=== PATIENT | male | born 1995 | race Caucasian/White ===

== ENCOUNTER 2022-12-17 23:27 | Emergency (ER) | payer SELFPAY ==
--- OUTSIDE RECORDS SUMMARY | 2022-12-17 23:31 | XMS REPORT | Continuity of Care Document ---
:[address] [facility] t Address [address] [place] [address] Care Team Providers Name Role Phone Pcp, Patient Does Not Have A Primary Care Physician [id number] Becka Pimentel MD Attending Clinician BECKA PIMENTEL Attending Clinician Unavailable Payers Payer Name Policy Type Policy Number Effective Date Expiration Date Startpack [id number] 1558-12-01 NON-CONTRACT 00:00:00 GENERIC Problems Condition Condition Condition Status Onset Resolution Last Treating Co mments Source Name Details Category Date Date Treatment Clinician Date No known No known Disease Unive rs active active ity of problems problems [facility] Allergies, Adverse Reactions, Alerts Allergy Allergy Status Severity Reaction(s) Onset Inactive Treating Comm ents Source Name Type Date Date Clinician Codeine Propensi Active Hives Univers ty to 02-15 ity of adverse 00:00: [place] reaction 00 Medical Branch Theraflu Propensi Active Hives Univer s Flu And ty to 02-15 ity of Cold adverse 00:00: [place] reaction 00 [facility] Branch CODEINE DRUG Active Hives Univers INGREDI 4-01 ity of 00:00: [address] THERAFLU DRUG Active Hives Univers FLU AND 02-15 ity of COLD 00:00: [address] Social History Social Habit Start Date Stop Date Quantity Comments Source Exposure to 2022-12-05 2022-12-15 Not sure [facility] SARS-CoV-2 (event) 00:00:00 04:22:00 Medica l Branch Sex Assigned At [birth year] [facility] [place] 00:00:00 00:00:00 Medical Branch Smoking Status Start Date Stop Date Source Tobacco smoking consumption General acute hospital unknown Branch Medications Ordered Filled Start Stop Current Ordering Indication Dosage Frequency Signature Comments Components Source Medication Medication Date Date Medication? Clinician (SIG) Name Name HYDROcodone 2022- No 1{tbl} 1 tablet, Univers -acetaminop 12-15 Oral, [facility]y of [place] (NORCO) 12:00[place] 11[place]05 [place] 00 :00 dose, On Medica l tablet 1 [place] Branch tablet 12/15/22 at 0600, Routine traMADOL Yes 50mg Take 1 Univers (ULTRAM) 50 7-24 tablet by ity of mg tablet 00:00: mouth [place] 00 every 6 Medical (six) Branch hours as needed for Pain (scale 4-6). Aneudy Christianson PA-C / Bright Rice MD SAIMA# [id number] DPS# [id number] Lic.# [id number] NPI# [id number] Vital Signs Vital Name Observation Time Observation Value Comments Source Systolic blood 2022-12-15 10:26:00 120 [facility] Diastolic blood 2022-12-15 10:26:00 77 [facility]Hg[facility] Heart rate 2022-12-15 10:26:00 87 /min [facility] Body temperature 2022-12-15 10:26:00 37.39 Kacey [facility] Respiratory rate 2022-12-15 10:26:00 18 /min [facility] Body height 2022-12-15 10:26:00 188 cm [facility] Body weight 2022-12-15 10:26:00 83.915 kg [facility] BMI 2022-12-15 10:26:00 23.75 kg/m2 [facility] Oxygen saturation in 2022-12-15 10:26:00 93 /min [facility] Arterial blood by [facility] Pulse oximetry Branch Procedures Procedure Date / Time Performed Performing Clinician Burke e BASIC METABOLIC PANEL 2022-12-15 11:12:00 Becka Pimentel [facility] (NA, K, CL, CO2, Medical Branch GLUCOSE, BUN, CREATININE, CA) CBC WITH DIFF 2022-12-15 11:12:00 Becka Pimentel [facility] URINALYSIS 2022-12-15 10:32:00 Becka Pimentel [facility] CONSENT/REFUSAL FOR 2022-12-15 10:06:49 Doctor Unassigned, No Un [facility] DIAGNOSIS AND Name [facility] Branch TREATMENT Encounters Start End Encounter Admission Attending Care Care Encounter Source Date/Time Date/Time Type Type Clinicians Facility Department ID 2022-12-15 2022-12-15 Emergency Scott [facility] [id number] Univers 04:21:00 06:13:00 Becka Carrillo [facility] [id number] hesham [facility] [id number] [facility] [id number] [facility] 084 Branch 2022-12-15 2022-12-15 Emergency X CHARLEY PIMENTEL ERT [id number] Univers 04:21:00 06:13:00 BECKA dahl [facility] Results This patient has no known results.
[2022-12-17] MEDS ORDERED: NA CHLORIDE 0.9% 1,000 ML ONE (23:47)
[2022-12-17] MEDS ORDERED: ONDANSETRON 4 MG/2 ML VIAL ONE (23:47)
[2022-12-17] MEDS ORDERED: MORPHINE 4 MG/ML SYR ONE (23:47)
[2022-12-18 00:17] LABS: MCV 87.2 fL (80-100); MPV 9.6 fL (7.6-11.3)
[2022-12-18] MEDS ORDERED: NA CHLORIDE 0.9% 1,000 ML ONE (00:45)
[2022-12-18 00:52] LABS: Blood Morphology Comment NOT SEEN (NOT SEEN); Platelet Estimate ADEQ
[2022-12-18 00:54] LABS: Urine Blood Negative (Negative); Urine Glucose 3+ (Negative); Urine Protein Negative (Negative); Urine pH 5.5 (5.0-7.0)
[2022-12-18 00:56] LABS: Albumin 3.4 g/dL (3.4-5.0); Bilirubin Total 0.3 mg/dL (0.2-1.0); Protein, Total 6.7 g/dL (6.4-8.2)
[2022-12-18 00:58] LABS: Potassium 4.8 mmol/L (3.5-5.1)
[2022-12-18 01:08] LABS: Urine Bacteria None Seen /HPF (<20); Urine Mucus Slight /HPF (None Seen); Urine RBC None Seen /HPF (None Seen)
[2022-12-18] MEDS ORDERED: INSULIN GLARGINE 100 UNIT/ML SQ ONE (01:23)
[2022-12-18] MEDS ORDERED: INSULIN -REGULAR HUMAN 50 UNIT/0.5 ML ML ONE (01:30)
--- NOTE | 2022-12-18 02:00 | EDPHYS ---
Physician Documentation [facility] Name: Angie Santillan Age: 27 yrs Sex: Male : 1995 Arrival Date: 12/17/2022 Time: 23:33 Bed 7 Private MD: ED Physician Won Marquez HPI: 12/18 01:03 This 27 yrs old Male presents to ER via Ambulatory with complaints of Back jose Pain. 01:03 The patient presents with pain that is acute, with no known mechanism of injury. The jose symptoms are located in the right mid back and right low back. Onset: The symptoms/episode began/occurred 6 day(s) ago. The pain does not radiate. Associated signs and symptoms: Pertinent positives: none. The problem was sustained when bending over. Modifying factors: The patient symptoms are alleviated by remaining still, the patient symptoms are aggravated by movement. Severity of symptoms: At their worst the symptoms were moderate, in the emergency department the symptoms are unchanged. The patient has not experienced similar symptoms in the past. Historical: - Allergies: 12/17 23:47 No Known Allergies; kd3 - Home Meds: 23:47 None [Active]; kd3 - PMHx: 23:47 None; kd3 - Immunization history:: Adult Immunizations up to date. - Social history:: Smoking status: Patient reports the use of cigarette tobacco products, 1 pack per week . - Family history:: not pertinent. ROS: 12/18 01:03 Constitutional: Negative for fever, chills, and weight loss, Eyes: Negative for injury, jose pain, redness, and discharge, ENT: Negative for injury, pain, and discharge, Neck: Negative for injury, pain, and swelling, Cardiovascular: Negative for chest pain, palpitations, and edema, Respiratory: Negative for shortness of breath, cough, wheezing, and pleuritic chest pain, Abdomen/GI: Negative for abdominal pain, nausea, vomiting, diarrhea, and constipation, : Negative for injury, bleeding, discharge, and swelling, MS/Extremity: Negative for injury and deformity, Skin: Negative for injury, rash, and discoloration, Neuro: Negative for headache, weakness, numbness, tingling, and seizure, Psych: Negative for depression, anxiety, suicide ideation, homicidal ideation, and hallucinations, Allergy/Immunology: Negative for hives, rash, and allergies, Endocrine: Negative for neck swelling, polydipsia, polyuria, polyphagia, and marked weight changes, Hematologic/Lymphatic: Negative for swollen nodes, abnormal bleeding, and unusual bruising. Back: Positive for injury or acute deformity, decreased range of motion, pain with movement, flank pain, on the right. Exam: 01:03 Constitutional: This is a well developed, well nourished patient who is awake, alert, jose and in no acute distress. Head/Face: Normocephalic, atraumatic. Eyes: Pupils equal round and reactive to light, extra-ocular motions intact. Lids and lashes normal. Conjunctiva and sclera are non-icteric and not injected. Cornea within normal limits. Periorbital areas with no swelling, redness, or edema. ENT: Nares patent. No nasal discharge, no septal abnormalities noted. Tympanic membranes are normal and external auditory canals are clear. Oropharynx with no redness, swelling, or masses, exudates, or evidence of obstruction, uvula midline. Mucous membranes moist. Neck: Trachea midline, no thyromegaly or masses palpated, and no cervical lymphadenopathy. Supple, full range of motion without nuchal rigidity, or vertebral point tenderness. No Meningismus. Chest/axilla: Normal chest wall appearance and motion. Nontender with no deformity. No lesions are appreciated. Cardiovascular: Regular rate and rhythm with a normal S1 and S2. No gallops, murmurs, or rubs. Normal PMI, no JVD. No pulse deficits. Respiratory: Lungs have equal breath sounds bilaterally, clear to auscultation and percussion. No rales, rhonchi or wheezes noted. No increased work of breathing, no retractions or nasal flaring. Abdomen/GI: Soft, non-tender, with normal bowel sounds. No distension or tympany. No guarding or rebound. No evidence of tenderness throughout. Male : Normal genitalia with no discharge or lesions. Skin: Warm, dry with normal turgor. Normal color with no rashes, no lesions, and no evidence of cellulitis. MS/ Extremity: Pulses equal, no cyanosis. Neurovascular intact. Full, normal range of motion. Neuro: Awake and alert, GCS 15, oriented to person, place, time, and situation. Cranial nerves II-XII grossly intact. Motor strength 5/5 in all extremities. Sensory grossly intact. Cerebellar exam normal. Normal gait. Psych: Awake, alert, with orientation to person, place and time. Behavior, mood, and affect are within normal limits. 01:03 Back: pain, that is mild, that is moderate, ROM is painful, with all movement, normal spinal alignment noted, CVA tenderness, that is moderate, is noted on the right, muscle spasm, is not present. Vital Signs: 12/17 23:43 BP 118 / 96; Pulse 80; Resp 16; Temp 97.9(O); Pulse Ox 100% ; Weight 81.65 kg; Height 6 kd3 ft. (182.88 cm); 12/18 01:02 BP 99 / 65; Pulse 73; Resp 19 S; Pulse Ox 94% on R/A; aa9 12/17 23:43 Body Mass Index 24.41 (81.65 kg, 182.88 cm) kd3 MDM: 12/17 23:34 Patient medically screened. [facility] 12/18 01:07 Differential diagnosis: Fatigue Fracture Osteoarthritis ruptured disc, Scoliosis jose sprain, Ureterolithiasis vertebral fracture. Data reviewed: vital signs, nurses notes, lab test result(s), radiologic studies, CT scan. Consideration of Admission/Observation Patient was admitted/placed on observation. Escalation of care including admission/observation considered. I considered the following discharge prescriptions or medication management in the emergency department Medications were administered in the Emergency Department. See MAR. Test considered but Not performed: MRI: mri lumbar not ordered. 12/17 23:34 Order name: CBC with Diff; Complete Time: 01:00 [facility] 12/17 23:34 Order name: CMP; Complete Time: 01:00 [facility] 12/17 23:34 Order name: Lipase; Complete Time: 01:00 [facility] 12/17 23:34 Order name: Urine Microscopic Only; Complete Time: 01:30 [facility] 12/18 00:28 Order name: Manual Differential; Complete Time: 01:00 [facility] 12/18 00:54 Order name: Urine Dipstick-Ancillary; Complete Time: 01:00 [facility] 12/17 23:43 Order name: CT Abd/Pelvis - IV Contrast Only [facility] 12/18 02:26 Order name: Glucose, Ancillary Testing EDME 12/17 23:34 Order name: IV Saline Lock; Complete Time: 00:07 [facility] 12/17 23:34 Order name: Labs collected and sent; Complete Time: 00:07 jose 12/17 23:34 Order name: Urine Dipstick-Ancillary (obtain specimen); Complete Time: 00:53 jose Administered Medications: 00:07 Drug: NS 0.9% 1000 ml Route: IV; Rate: 1 bolus; Site: right antecubital; as6 02:40 Follow up: Response: No adverse reaction; IV Status: Completed infusion; IV Intake: aa9 1000ml 00:07 Drug: Zofran (Ondansetron) 4 mg Route: IVP; Site: right antecubital; as6 02:40 Follow up: Response: No adverse reaction aa9 00:08 Drug: morphine 4 mg Route: IVP; Infused Over: 4 mins; Site: right antecubital; as6 02:40 Follow up: Response: No adverse reaction aa9 00:43 Drug: NS 0.9% 1000 ml Route: IV; Rate: 1 bolus; Site: right antecubital; aa9 02:40 Follow up: IV Status: Completed infusion; IV Intake: 1000ml aa9 01:43 Drug: Insulin Regular Human 10 units {Co-Signature: as6 (Steven Gonzalez RN).} Route: aa9 IVP; Site: right antecubital; 02:14 Follow up: Response: No adverse reaction; BS 347 aa9 01:44 Drug: Semglee 100 unit/mL 35 units Route: Sub-Q; Site: left upper arm; aa9 02:15 Follow up: Response: No adverse reaction; Blood sugar is lowered aa9 Disposition Summary: 12/18/22 01:59 Discharge Ordered Location: Home [facility] Problem: new jose Symptoms: have improved jose Condition: Stable jose Diagnosis - Type 2 diabetes mellitus with hyperglycemia jose - Low back pain jose Followup: jose - With: Private Physician - When: 2 - 3 days - Reason: Recheck today's complaints, Continuance of care, Re-evaluation by your physician Followup: jose - With: - When: 2 - 3 days - Reason: Recheck today's complaints, Re-evaluation by your physician Discharge Instructions: - Discharge Summary Sheet jose - Acute Back Pain, Adult jose - Type 2 Diabetes Mellitus, Diagnosis, Adult jose - Hyperglycemia jose - Musculoskeletal Pain jose - Diabetes Mellitus and Nutrition, Adult jose Forms: - Medication Reconciliation Form jose - Thank You Letter jose - Antibiotic Education jose - Prescription Opioid Use [facility] Prescriptions: - Ibuprofen 600 mg Oral Tablet - take 1 tablet by ORAL route every 8 hours As needed take with food; 21 tablet; [facility] Refills: 0, Product Selection Permitted - Metformin 850 mg Oral Tablet - take 1 tablet by ORAL route 2 times per day with morning and evening meals; 30 jose tablet; Refills: 0, Product Selection Permitted Signatures: Dispatcher [employer] Won Spence MD MD cha Slawson, Ashby, RN RN as6 Gely Cook RN RN kd3 Jenniffer Hernandez RN RN aa9 Steven Gonzalez RN as6
--- NOTE | 2022-12-18 02:00 | ER ---
[facility] Name: Angie Santillan Age: 27 yrs Sex: Male : 1995 Arrival Date: 12/17/2022 Time: 23:33 Bed 7 Private MD: Diagnosis: Type 2 diabetes mellitus with hyperglycemia;Low back pain Presentation: 12/17 23:43 Chief complaint: Patient states: I was out working on my truck on Friday and i was sore kd3 a bit then. Friday i woke up and my right lower back really started to hurt a lot. I went to the [facility] and they didn't do any scans or anything on my, just gave me one pain pill and sent me home. Well the pain hasn't gone away and i just cant stand it anymore. Coronavirus screen: Vaccine status: Patient reports being unvaccinated. Ebola Screen: No symptoms or risks identified at this time. Initial Sepsis Screen: Does the patient meet any 2 criteria? No. Patient's initial sepsis screen is negative. Does the patient have a suspected source of infection? No. Patient's initial sepsis screen is negative. Risk Assessment: Do you want to hurt yourself or someone else? Patient reports no desire to harm self or others. Onset of symptoms was December 17, 2022. 23:43 Method Of Arrival: Ambulatory kd3 23:43 Acuity: MICA 3 kd3 Triage Assessment: 23:47 General: Appears in no apparent distress. Behavior is calm, cooperative. Pain: kd3 Complains of pain in left low back and left mid back. Neuro: Level of Consciousness is awake, alert, obeys commands, Oriented to person, place, time, situation, Intact. 23:48 Musculoskeletal: Circulation, motion, and sensation intact. kd3 Historical: - Allergies: 23:47 No Known Allergies; kd3 - Home Meds: 23:47 None [Active]; kd3 - PMHx: 23:47 None; kd3 - Immunization history:: Adult Immunizations up to date. - Social history:: Smoking status: Patient reports the use of cigarette tobacco products, 1 pack per week . - Family history:: not pertinent. Screenin:49 [facility] ED Fall Risk Assessment (Adult) History of falling in the last 3 months, kd3 including since admission No falls in past 3 months (0 pts). Abuse screen: Denies threats or abuse. Denies injuries from another. Nutritional screening: No deficits noted. Tuberculosis screening: No symptoms or risk factors identified. Assessment: 12/18 02:39 Reassessment: Patient appears in no apparent distress at this time. Patient and/or aa9 family updated on plan of care and expected duration. Pain level reassessed. Patient is alert, oriented x 3, equal unlabored respirations, skin warm/dry/pink. Patient denies pain at this time. Vital Signs: 12/17 23:43 BP 118 / 96; Pulse 80; Resp 16; Temp 97.9(O); Pulse Ox 100% ; Weight 81.65 kg; Height 6 kd3 ft. (182.88 cm); 12/18 01:02 BP 99 / 65; Pulse 73; Resp 19 S; Pulse Ox 94% on R/A; aa9 12/17 23:43 Body Mass Index 24.41 (81.65 kg, 182.88 cm) kd3 ED Course: 12/17 23:33 Patient arrived in ED. ag3 23:33 Won Marquez MD is Attending Physician. jose 23:41 Steven Gonzalez, ИВАН is Primary Nurse. as6 23:47 Triage completed. kd3 23:48 Arm band placed on right wrist. kd3 23:49 Patient has correct armband on for positive identification. kd3 12/18 00:07 Inserted saline lock: 20 gauge in right antecubital area, using aseptic technique. as6 Blood collected. 01:43 CT Abd/Pelvis - IV Contrast Only In Process Unspecified. EDMS 01:59 Jarad Vitcoria DO is Referral Physician. jose 02:15 No provider procedures requiring assistance completed. aa9 02:39 IV discontinued, intact, bleeding controlled, No redness/swelling at site. aa9 Administered Medications: 00:07 Drug: NS 0.9% 1000 ml Route: IV; Rate: 1 bolus; Site: right antecubital; as6 02:40 Follow up: Response: No adverse reaction; IV Status: Completed infusion; IV Intake: aa9 1000ml 00:07 Drug: Zofran (Ondansetron) 4 mg Route: IVP; Site: right antecubital; as6 02:40 Follow up: Response: No adverse reaction aa9 00:08 Drug: morphine 4 mg Route: IVP; Infused Over: 4 mins; Site: right antecubital; as6 02:40 Follow up: Response: No adverse reaction aa9 00:43 Drug: NS 0.9% 1000 ml Route: IV; Rate: 1 bolus; Site: right antecubital; aa9 02:40 Follow up: IV Status: Completed infusion; IV Intake: 1000ml aa9 01:43 Drug: Insulin Regular Human 10 units {Co-Signature: as6 (Steven Gonzalez RN).} Route: aa9 IVP; Site: right antecubital; 02:14 Follow up: Response: No adverse reaction; BS 347 aa9 01:44 Drug: Semglee 100 unit/mL 35 units Route: Sub-Q; Site: left upper arm; aa9 02:15 Follow up: Response: No adverse reaction; Blood sugar is lowered aa9 Medication: 12/17 23:49 VIS not applicable for this client. kd3 Intake: 02 02:40 IV: 1000ml; Total: 1000ml. aa9 02:40 IV: 1000ml; Total: 2000ml. aa9 Outcome: 01:59 Discharge ordered by . jose 02:39 Discharged to home ambulatory. aa9 02:39 Condition: stable 02:39 Discharge instructions given to patient, Instructed on discharge instructions, follow up and referral plans. medication usage, Demonstrated understanding of instructions, follow-up care, medications, Prescriptions given X 2. 02:39 Patient left the ED. aa9 Signatures: Dispatcher [employer] EDWon Gonzales MD MD cha Gomez, Alice ag3 Slawson, Ashby, RN RN as6 Gely Cook RN RN kd3 Jenniffer Hernandez RN RN aa9 Steven Gonzalez RN as6
[2022-12-18 02:49] VITALS: TEMP 97.9
[2022-12-18 02:55] VITALS: BP 99/65; O2SAT 94
--- NOTE | 2022-12-18 12:48 | RAD REPORT ---
EXAM DESCRIPTION: CT - Abdomen Pelvis W Contrast - 12/18/2022 6:38 am CLINICAL HISTORY: 27 years, Male, flank pain COMPARISON: None TECHNIQUE: Contrast-enhanced images of the abdomen and pelvis were performed utilizing 5 mm slice th ickness at 5 mm interval reconstruction from the lung bases to the ischial tuberosities after the adm inistration of IV contrast. In addition multiplanar reformats in the coronal and sagittal plane were obtained and reviewed. This exam was performed according to our departmental dose-optimization protocol, which includes auto mated exposure control, adjustment of the mA and/or kV according to patient size and/or use of iterat edu reconstruction technique. FINDINGS: The lung bases demonstrate to be clear. The liver, gallbladder, pancreas, spleen and adrenal glands demonstrate to be unremarkable, no focal lesions are noted. The kidneys demonstrate normal uptake of contrast media. No evidence for nephrolithiasis and/or hydro nephrosis. Grossly the unopacified stomach, small bowel and large bowel demonstrate to be within normal limits. There is no evidence for bowel dilatation/or free air. The appendix is normal. The urinary bladder demonstrate to be unremarkable. The prostate gland is normal. The aorta demon strate to be normal. There is no retroperitoneal lymphadenopathy. There is no ascites. The rest of the soft tissue and bony structures are within normal limits. IMPRESSION: No evidence for nephrolithiasis and/or hydronephrosis. Unremarkable CT scan of the abdomen and pelvis with contrast. Electronically signed by: Deon Tamez MD 12/18/2022 1:55 AM [employer] OPERATOR Due to temporary technical issues with the PACS/Fluency reporting system, reports are being signed by the in house radiologists without review as a courtesy to insure prompt reporting. The interpreting radiologist is fully responsible for the content of the report.
== END 2022-12-18 02:39 | disposition home or self-care (01) ==
LOC: ER 23:27
DX: M54.50 Low back pain, unspecified (principal); E11.65 Type 2 diabetes mellitus with hyperglycemia; F17.210 Nicotine dependence, cigarettes, uncomplicated
CPT/HCPCS: 36415; 74177; 80053; 81003; 81015; 82947; 83690; 85025; J1815; J2405; J7030; Q9967

== ENCOUNTER → 2023-11-08 | Emergency (ER) | payer SELFPAY ==
--- OUTSIDE RECORDS SUMMARY | 2023-11-08 12:04 | XMS REPORT | Continuity of Care Document ---
Author Name Unknown Address [address] [facility] [address] [place] [address] [facility] Address [address] [facility] [address] [place] [address] Care Team Providers Care Wheel Braider Name Role Phone Pcp, Patient Does Not Have A Primary Care Physic wanda Becka Pimentel MD Attending Clinician BECKA PIMENTEL Attending Clinician Unavailable Payers Payer Name Policy Type Policy Number Effective Date Expirati on Date Source COMMERCIAL NON-CONTRACT GENERIC [id number] 1708-12-01 00:00:00 Problems Condition Name Condition Details Condition Category Status Onset Date Resolution Date Last Treatment Date Treating Clinician Comments Source No known active problems No known active problems Disease [facility] Allergies, Adverse Reactions, Alerts Allergy Name Allergy Type Status Severity Reaction(s) Onset Date Inactive Date Treating Clinician Comments Source Codeine Propensi ty to adverse reaction s Active Hives 02-15 00:00: 00 [facility] Theraflu Flu And Cold Propensi ty to adverse reaction s Active Hives 02-15 00:00: 00 [facility] CODEINE DRUG INGREDI Active Hives 02-15 00:00: 00 [facility] THERAFLU FLU AND COLD DRUG Active Hives 02-15 00:00: 00 [facility] Social History Social Habit Start Date Stop Date Quantity Comments Source Exposure to SARS-CoV-2 (event) 2022-12-05 00:00:00 2022-12-15 04:22:00 Not sure [facility] Sex Assigned At 1995 00:00:00 1995 00:00:00 [facility] Smoking Status Start Date Stop Date Source Tobacco smoking consumption unknown [facility] Medications Ordered Medication Name Filled Medication Name Start Date Stop Date Current Medication? Ordering Clinician Indication Dosage Frequency Signature (SIG) Comments Components Source HYDROcodone -acetaminop hen (NORCO) 10-325 mg tablet 1 tablet 12-15 12:00: 00 12-15 11:05 :00 No 1{tbl} 1 tablet, Oral, ONCE, 1 dose, On 12/15/22 at 0600, Routine [facility] traMADOL (ULTRAM) 50 mg tablet 06-09 00:00: 00 Yes 50mg Take 1 tablet by mouth every 6 (six) hours as needed for Pain (scale 4-6). Aneudy Christianson PA-C / Bright Rice MD SAIMA# [id number] DPS# [id number] x Lic.# [id number] NPI# [id number] [facility] Vital Signs Vital Name Observation Time Observation Value Comments S ource Systolic blood pressure 2022-12-15 10:26:00 120 mm[Hg] [facility] Diastolic blood pressure 2022-12-15 10:26:00 77 mm[Hg] [facility] Heart rate 2022-12-15 10:26:00 87 /min [facility] Body temperature 2022-12-15 10:26:00 37.39 Kacey [facility] Respiratory rate 2022-12-15 10:26:00 18 /min [facility] Body height 2022-12-15 10:26:[address] [facility] Body weight 2022-12-15 10:26:[address] [facility] BMI 2022-12-15 10:26:00 23.75 kg/m2 [facility] Oxygen saturation in Arterial blood by Pulse oximetry 2022-12-15 10:26:00 93 /min [facility] Procedures Procedure Date / Time Performed Performing Clinicia n Source BASIC METABOLIC PANEL (NA, K, CL, CO2, GLUCOSE, BUN, CREATININE, CA) 2022-12-15 11:12:00 Becka Pimentel [facility] CBC WITH DIFF 2022-12-15 11:12:00 Becka Pimentel [facility] URINALYSIS 2022-12-15 10:32:[address] [facility] CONSENT/REFUSAL FOR DIAGNOSIS AND TREATMENT 2022-12-15 10:06:49 Doctor Unassigned, [place] [facility] Encounters Start Date/Time End Date/Time Encounter Type Admission Type Attending Clinicians Care Facility Care Department Encounter ID Source 2022-12-15 04:21:00 2022-12-15 06:13:00 Emergency Becka Pimentel [facility] [id number] [facility] 2022-12-15 04:21:00 2022-12-15 06:13:00 Emergency X BECKA PIMENTEL [facility] ERT [id number] [facility]
--- NOTE | 2023-11-08 14:34 | RAD REPORT ---
EXAM DESCRIPTION: Andrew Single View11/08/2023 2:00 pm CLINICAL HISTORY: sob COMPARISON: none FINDINGS: The lungs appear clear of acute infiltrate. The heart is normal size IMPRESSION: No acute abnormalities displayed
--- NOTE | 2023-11-08 18:33 | ER ---
Nurse's Notes [facility] Name: Angie Santillan Age: 28 yrs Sex: Male : 1995 Arrival Date: 11/08/2023 Time: 12:02 Bed IW9 Private MD: Diagnosis: Diabetes mellitus due to underlying condition with hyperglycemia;Tachycardia, unspecified Presentation: 11/08 13:23 Chief complaint: Patient states: DIZZINESS AND LOSS OF BALANCE EVERY TIME HE STANDS UP jj7 IN THE LAST 2-3 DAYS. HEADACHE, SOB ONLY WHEN HE WALKS. Coronavirus screen: At this time, the client does not indicate any symptoms associated with coronavirus-19. Ebola Screen: No symptoms or risks identified at this time. Initial Sepsis Screen: Does the patient meet any 2 criteria? HR > 90 bpm. Yes Does the patient have a suspected source of infection? No. Patient's initial sepsis screen is negative. Risk Assessment: Do you want to hurt yourself or someone else? Patient reports no desire to harm self or others. 13:23 Method Of Arrival: [facility] 13:23 Acuity: MICA 3 jj7 Triage Assessment: 13:28 General: Appears in no apparent distress. comfortable, Behavior is calm, cooperative, jj7 appropriate for age. Pain: Denies pain. Neuro: Reports dizziness, headache. Historical: - Allergies: 13:28 Codeine; jj7 13:28 THERMAFLU; jj7 - PMHx: 13:28 Diabetes mellitus; jj7 - PSHx: 13:28 LEFY EYE; HEAD; jj7 - Immunization history:: Adult Immunizations not up to date. - Social history:: Smoking status: Patient/guardian denies using tobacco, Stopped _ months ago 4 Patient uses alcohol, occasionally. Patient/guardian denies using street drugs. Vital Signs: 13:23 BP 110 / 95; Pulse 128; Resp 17; Temp 98; Pulse Ox 100% ; Weight 81.65 kg; Height 6 ft. jj7 2 in. ; Pain 0/10; 13:23 Body Mass Index 23.11 (81.65 kg, 187.96 cm) j 13:23 Pain Scale: Adult j ED Course: 12:18 Patient arrived in ED. im 13:10 Won Enrique PA is PHCP. cp 13:10 Won Marquez MD is Attending Physician. cp 13:28 Triage completed. jj7 13:28 Arm band placed on right wrist. jj7 14:02 XRAY Chest (1 view) In Process Unspecified. EDMS Administered Medications: No medications were administered Point of Care Testing: Blood Glucose: 15:06 Blood Glucose: 500 mg/dL; jj7 Ranges: Outcome: 18:36 Patient left the ED. ap3 Signatures: Dispatcher [employer] EDMS Won Enrique PA PA cp Prokisch, Amanda, RN RN ap3 Ricki Donnelly RN RN jj7 Dania Collins
--- NOTE | 2023-11-08 18:33 | EDPHYS ---
Physician Documentation [facility] Name: Angie Santillan Age: 28 yrs Sex: Male : 1995 Arrival Date: 11/08/2023 Time: 12:02 Bed IW9 Private MD: ED Physician Won Marquez HPI: 11/08 13:33 This 28 yrs old Male presents to ER via Ambulatory with complaints of Dizziness. cp 13:33 The patient presents with dizziness, lightheadedness. cp 13:33 Onset: The symptoms/episode began/occurred 3 day(s) ago. cp 13:33 Associated signs and symptoms: Pertinent positives: headache, shortness of breath with cp exertion, Pertinent negatives: abdominal pain, chest pain, diaphoresis, focal weakness. Patient's baseline: Neuro: alert and fully oriented, Motor: no deficits, Ambulation: walks without assistance, Speech: normal. 13:33 Patient reports medical history significant for diabetes. Stop taking insulin due to cp side effects. Historical: - Allergies: 13:28 Codeine; jj7 13:28 THERMAFLU; jj7 - PMHx: 13:28 Diabetes mellitus; jj7 - PSHx: 13:28 LEFY EYE; HEAD; jj7 - Immunization history:: Adult Immunizations not up to date. - Social history:: Smoking status: Patient/guardian denies using tobacco, Stopped _ months ago 4 Patient uses alcohol, occasionally. Patient/guardian denies using street drugs. ROS: 13:35 Constitutional: Negative for body aches, chills, fever, poor PO intake, cp 13:35 Cardiovascular: Negative for edema, palpitations, cp 13:35 Eyes: Negative for injury, pain, redness, and discharge, cp 13:35 ENT: Negative for drainage from ear(s), ear pain, sore throat, difficulty swallowing, difficulty handling secretions, 13:35 Respiratory: Positive for shortness of breath, Negative for cough, wheezing, 13:35 Abdomen/GI: Negative for abdominal pain, vomiting, diarrhea, constipation, 13:35 : Negative for urinary symptoms, testicular pain 13:35 Neuro: Positive for dizziness, headache, Negative for altered mental status, syncope, weakness, 13:35 All other systems are negative, Exam: 13:40 Constitutional: The patient appears in no acute distress, alert, awake, cp non-diaphoretic, non-toxic, well developed, well nourished, 13:40 Head/Face: Normocephalic, atraumatic. cp 13:40 Eyes: Periorbital structures: appear normal, Conjunctiva: normal, no exudate, no injection, Sclera: no appreciated abnormality, Lids and lashes: appear normal, bilaterally, 13:40 ENT: External ear(s): are unremarkable, Nose: is normal, Mouth: Lips: moist, Oral mucosa: pink and intact, moist, Posterior pharynx: Airway: no evidence of obstruction, patent, 13:40 Chest/axilla: Inspection: normal, 13:40 Cardiovascular: Rate: tachycardic, Rhythm: regular, 13:40 Respiratory: the patient does not display signs of respiratory distress, Respirations: normal, no use of accessory muscles, no retractions, labored breathing, is not present, Breath sounds: are clear throughout, no decreased breath sounds, no stridor, no wheezing, 13:40 Abdomen/GI: Inspection: abdomen appears normal, Palpation: abdomen is soft and non-tender, in all quadrants, 13:40 Neuro: Orientation: to person, place \T\ time. Mentation: able to follow commands, slow to respond, Motor: moves all fours, strength is normal, Vital Signs: 13:23 BP 110 / 95; Pulse 128; Resp 17; Temp 98; Pulse Ox 100% ; Weight 81.65 kg; Height 6 ft. jj7 2 in. ; Pain 0/10; 13:23 Body Mass Index 23.11 (81.65 kg, 187.96 cm) jj7 13:23 Pain Scale: Adult jj7 MDM: 13:32 Patient medically screened. [facility] 16:50 Data reviewed: vital signs, nurses notes, radiologic studies, plain films. 11/08 15:17 Order name: Glucose, Ancillary Testing; Complete Time: 16:47 EDMS 11/08 13:29 Order name: XRAY Chest (1 view); Complete Time: 16:47 11/08 16:47 Interpretation: Report review. 11/08 13:29 Order name: EKG; Complete Time: 13:29 11/08 13:29 Order name: Cardiac monitoring 11/08 13:29 Order name: EKG - Nurse/Tech 11/08 13:29 Order name: IV Saline Lock 11/08 13:29 Order name: Labs collected and sent 11/08 13:29 Order name: O2 Per Protocol 11/08 13:29 Order name: O2 Sat Monitoring 11/08 15:00 Order name: Accucheck Blood Glucose; Complete Time: 15:06 cp Administered Medications: No medications were administered Point of Care Testing: Blood Glucose: 15:06 Blood Glucose: 500 mg/dL; jj7 Ranges: Critical Glucose Levels:Adult <50 mg/dl or >400 mg/dl <40 mg/dl or >180 mg/dl Disposition Summary: 11/08/23 18:33 Eloped Notes: Disposition: after being seen by provider cp Problem: new cp Symptoms: are unchanged cp Reason: unknown cp Condition: Serious cp Diagnosis - Diabetes mellitus due to underlying condition with hyperglycemia cp - Tachycardia, unspecified cp Followup: cp - With: Emergency Department - When: As needed - Reason: Worsening of condition Signatures: Dispatcher [employer] EDMS Won Marquez MD MD cha Page, Corey, PA PA cp Ricki Donnelly RN RN jj7 Corrections: (The following items were deleted from the chart) 17:46 13:29 Urinalysis W/Microscopic+U.LAB.BRZ ordered. EDMS EDMS 17:47 13:29 BASIC METABOLIC PANEL+C.LAB.BRZ ordered. EDMS EDMS 17:47 13:29 CBC+H.LAB.BRZ ordered. EDMS EDMS 17:47 13:29 HEPATIC FUNCTION+C.LAB.BRZ ordered. EDMS EDMS 17:47 13:29 MAGNESIUM+C.LAB.BRZ ordered. EDMS EDMS 17:47 13:29 PROBNP+C.LAB.BRZ ordered. EDMS EDMS 17:47 13:29 Troponin High Sensitivity+C.LAB.BRZ ordered. EDMS EDMS 18:36 13:32 BETA HYDROXYBUTYRATE+C.LAB.BRZ ordered. cp ap3
[2023-11-08 20:34] VITALS: BP 110/95; TEMP 98; O2SAT 100
== END ==
LOC: ER 12:02
DX: E11.65 Type 2 diabetes mellitus with hyperglycemia (principal); R00.0 Tachycardia, unspecified
CPT/HCPCS: 71045; 82947; 99281

== ENCOUNTER 2025-03-20 19:29 | Emergency (ER) | payer OTHER, SELFPAY ==
[2025-03-20] MEDS ORDERED: IBUPROFEN 400 MG TAB ONE (20:03)
[2025-03-20] MEDS ORDERED: HYDROCODONE/APAP 7.5/325 MG TAB ONE (20:04)
--- NOTE | 2025-03-20 20:38 | EDPHYS ---
Physician Documentation [facility] Name: Angie Santillan Age: 29 yrs Sex: Male : 1995 Arrival Date: 03/20/2025 Time: 19:29 Bed 11 Private MD: ED Physician Adair Rivero HPI: 03/20 20:00 This 29 yrs old Male presents to ER via Ambulatory with complaints of Toothache. cp 20:00 The patient presents with pain. The problem is located in the right upper jaw. cp 20:00 Associated signs and symptoms: Pertinent positives: pain, Pertinent negatives: fever, cp inability to eat. 20:00 Patient reports having 2 teeth removed yesterday by local dentist. Increased pain cp today. Ran out of Tramadol. Currently taking prescribed Amoxicillin. Historical: - Allergies: 19:50 Codeine; cm10 19:50 THERMAFLU; cm10 - PMHx: 19:50 diabetes mellitus; cm10 - PSHx: 19:50 head; LEFY EYE; cm10 - Immunization history:: Adult Immunizations up to date. - Infectious Disease History:: Denies. - Social history:: Smoking status: Patient reports the use of cigarette tobacco products, denies chronic smoking, but will smoke occasionally. ROS: 20:05 ENT: Positive for dental pain, cp 20:05 Constitutional: Negative for body aches, chills, fever, poor PO intake, cp 20:05 Respiratory: Negative for cough, shortness of breath, wheezing, 20:05 Abdomen/GI: Negative for abdominal pain, nausea, vomiting, and diarrhea, 20:05 Eyes: Negative for injury, pain, redness, and discharge, cp 20:05 Skin: Negative for cellulitis, rash, cp 20:05 Neuro: Negative for altered mental status, headache, weakness, 20:05 All other systems are negative, Exam: 20:10 Constitutional: The patient appears in no acute distress, alert, awake, non-toxic, well cp developed, well nourished, uncomfortable, 20:10 Head/Face: Normocephalic, atraumatic. cp 20:10 Eyes: Periorbital structures: appear normal, Conjunctiva: normal, no exudate, no injection, Sclera: no appreciated abnormality, Lids and lashes: appear normal, bilaterally, 20:10 ENT: External ear(s): are unremarkable, Ear canal(s): are normal, clear, TM's: dullness, bilaterally, Nose: is normal, Mouth: Lips: moist, Oral mucosa: pink and intact, moist, Gums: pink, Tongue: is normal, abscess, is not appreciated, Posterior pharynx: Airway: no evidence of obstruction, patent, Dental exam: dental caries, that is severe, diffusely, missing teeth, specifically the upper right first molar (#3) and upper right second bicuspid (#4), pain, specifically in the upper right first molar (#3) and upper right second bicuspid (#4), Voice: is normal, 20:10 Neck: ROM/movement: Meningeal signs: are not present, nuchal rigidity, is not appreciated, 20:10 Chest/axilla: Inspection: normal, 20:10 Cardiovascular: Rate: normal, Rhythm: regular, 20:10 Respiratory: the patient does not display signs of respiratory distress, Respirations: normal, no use of accessory muscles, no retractions, labored breathing, is not present, Breath sounds: are clear throughout, no decreased breath sounds, no stridor, no wheezing, 20:10 Abdomen/GI: Inspection: abdomen appears normal, Palpation: abdomen is soft and non-tender, in all quadrants, Vital Signs: 19:49 BP 106 / 71; Pulse 66; Resp 14; Temp 98.2; Pulse Ox 99% on R/A; Weight 81.65 kg; Height cm10 6 ft. 2 in. ; Pain 7/10; 20:53 BP 110 / 70; Pulse 64; Resp 18 S; Temp 99(O); Pulse Ox 99% ; br2 19:49 Body Mass Index 23.11 (81.65 kg, 187.96 cm) cm10 19:49 Pain Scale: Adult cm10 MDM: 19:52 Medical Screening Exam initiated cp 20:10 Differential diagnosis: dental caries, gingivitis, dental abscess, pericoronitis. cp 20:37 Data reviewed: vital signs, nurses notes, and as a result, I will discharge patient. cp 20:37 I considered the following discharge prescriptions or medication management in the emergency department Medications were administered in the Emergency Department. See MAR. 20:38 Counseling: I had a detailed discussion with the patient and/or guardian regarding the cp historical points, exam findings, and any diagnostic results supporting the discharge/admit diagnosis, the need for outpatient follow up, a dentist, to return to the emergency department if symptoms worsen or persist or if there are any questions or concerns that arise at home. 20:38 Response to treatment: the patient's symptoms have mildly improved after treatment, and cp as a result, I will discharge patient. Administered Medications: 20:09 Drug: Ibuprofen PO 800 mg PO once Route: PO; br2 20:52 Follow up: Response: No adverse reaction br2 20:09 Drug: Hydrocodone-Acetaminophen PO (7.5 mg-325 mg) 1 tabs PO once; RASS on ADMIN: br2 Combtv4, Very Agttd3, Agttd2, Rstlss1, AlertClm0, Drwsy-1, Lt Sdtn-2, Mod Sdtn-3, Dp Sdtn-4, UnArsble-5 Route: PO; 20:52 Follow up: Response: No adverse reaction br2 Disposition: 21:45 Co-signature as Attending Physician, Adair Rivero MD I reviewed the patient's care rt provided by the Advanced Practice Provider and agree with the diagnosis and treatment plan. Disposition Summary: 03/20/25 20:38 Discharge Ordered Notes: Location: Home cp Problem: new cp Symptoms: have improved cp Condition: Stable cp Diagnosis - Disorder of teeth and supporting structures, unspecified cp - Dental caries, unspecified cp Followup: cp - With: Private Physician - When: 1 - 2 days - Reason: Recheck today's complaints Discharge Instructions: - Discharge Summary Sheet cp - Dental Caries, Adult cp - Dental Pain cp Forms: - Medication Reconciliation Form cp - Antibiotic Education cp - Prescription Opioid Use cp - Patient Portal Instructions cp - Leadership Thank You Letter cp Prescriptions: - Peridex 0.12 % Mucous Membrane Mouthwash - swish 15 milliliter BUCCAL route 2 times per day; 1 unit; Refills: 0, Product cp Selection Permitted - Anaprox DS 550 mg Oral Tablet - take 1 tablet ORAL route every 12 hours As needed; 20 tablet; Refills: 0, cp Product Selection Permitted Signatures: Won Enrique PA PA cp [place]ton, Ryan, MD MD rt Lindsey Tompkins RN RN cm10 Kristi Vargas RN RN br2
--- NOTE | 2025-03-20 20:38 | ER ---
Nurse's Notes [facility] Name: Angie Santillan Age: 29 yrs Sex: Male : 1995 Arrival Date: 03/20/2025 Time: 19:29 Bed 11 Private MD: Diagnosis: Disorder of teeth and supporting structures, unspecified;Dental caries, unspecified Presentation: 03/20 19:49 Chief complaint: Patient states: "I had 2 teeth pulled out yesterday and now i have dry cm10 socket.". Coronavirus screen: Client denies travel out of the [place] in the last 14 days. Ebola Screen: Patient denies travel to an Ebola-affected area in the 21 days before illness onset. Initial Sepsis Screen: Does the patient meet any 2 criteria? No. Patient's initial sepsis screen is negative. Does the patient have a suspected source of infection? No. Patient's initial sepsis screen is negative. Risk Assessment: Do you want to hurt yourself or someone else? Patient reports no desire to harm self or others. Onset of symptoms was March 20, 2025. 19:49 Method Of Arrival: Ambulatory cm10 19:49 Acuity: MICA 4 cm10 Triage Assessment: 19:51 General: Appears in no apparent distress. uncomfortable, Behavior is calm, cooperative. cm10 Pain: Complains of pain in mouth Pain currently is 7 out of 10 on a pain scale. at worst was 10 out of 10 on a pain scale. EENT: Reports pain in upper right first molar and upper right second bicuspid. Neuro: No deficits noted. Level of Consciousness is awake, alert, obeys commands, Oriented to person, place, time, situation, Appropriate for age. Respiratory: No deficits noted. Airway is patent Respiratory effort is even, unlabored, Respiratory pattern is regular, symmetrical. Historical: - Allergies: 19:50 Codeine; cm10 19:50 THERMAFLU; cm10 - PMHx: 19:50 diabetes mellitus; cm10 - PSHx: 19:50 head; LEFY EYE; cm10 - Immunization history:: Adult Immunizations up to date. - Infectious Disease History:: Denies. - Social history:: Smoking status: Patient reports the use of cigarette tobacco products, denies chronic smoking, but will smoke occasionally. Screenin:10 [facility] ED Fall Risk Assessment (Adult) History of falling in the last 3 months, br2 including since admission No falls in past 3 months (0 pts) Confusion or Disorientation No (0 pts) Intoxicated or Sedated Impaired Gait No (0 pts) Mobility Assist Device Used No (0 pt) Altered Elimination No (0 pt) Score/Fall Risk Level 0 - 2 = Low Risk Oriented to surroundings. Abuse screen: Denies threats or abuse. Denies injuries from another. Nutritional screening: No deficits noted. Tuberculosis screening: No symptoms or risk factors identified. Assessment: 20:10 General: Appears in no apparent distress. comfortable, Behavior is calm, cooperative. 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 PT HAS ICE PACK TO RIGHT SIDE OF FACE ON ER ARRIVAL. 20:32 Reassessment: Patient and/or family updated on plan of care and expected duration. Pain br2 level reassessed. Patient is alert, oriented x 3, equal unlabored respirations, skin warm/dry/pink. Patient denies pain at this time. 20:52 Reassessment: Patient is alert, oriented x 3, equal unlabored respirations, skin br2 warm/dry/pink. Patient states feeling better. Patient states symptoms have improved. Vital Signs: 19:49 BP 106 / 71; Pulse 66; Resp 14; Temp 98.2; Pulse Ox 99% on R/A; Weight 81.65 kg; Height cm10 6 ft. 2 in. ; Pain 7/10; 20:53 BP 110 / 70; Pulse 64; Resp 18 S; Temp 99(O); Pulse Ox 99% ; br2 19:49 Body Mass Index 23.11 (81.65 kg, 187.96 cm) cm10 19:49 Pain Scale: Adult cm10 ED Course: 19:33 Patient arrived in ED. jj6 19:34 Won Enrique PA is PHCP. cp 19:34 Adair Rivero MD is Attending Physician. cp 19:50 Triage completed. cm10 19:51 Arm band placed on left wrist. Patient placed in an exam room, on a stretcher. cm10 20:02 Kristi Vargas, ИВАН is Primary Nurse. br2 20:10 Bed in low position. Call light in reach. Side rails up X 1. Provided Education on: br2 PLAN OF CARE. 20:52 No provider procedures requiring assistance completed. Patient did not have IV access br2 during this emergency room visit. Administered Medications: 20:09 Drug: Ibuprofen PO 800 mg PO once Route: PO; br2 20:52 Follow up: Response: No adverse reaction br2 20:09 Drug: Hydrocodone-Acetaminophen PO (7.5 mg-325 mg) 1 tabs PO once; RASS on ADMIN: br2 Combtv4, Very Agttd3, Agttd2, Rstlss1, AlertClm0, Drwsy-1, Lt Sdtn-2, Mod Sdtn-3, Dp Sdtn-4, UnArsble-5 Route: PO; 20:52 Follow up: Response: No adverse reaction br2 Medication: 20:10 VIS not applicable for this client. br2 Outcome: 20:38 Discharge ordered by MD. cp 20:52 Discharged to home ambulatory, br2 20:52 Condition: stable 20:52 Discharge instructions given to patient, Instructed on discharge instructions, follow up and referral plans. Demonstrated understanding of instructions, follow-up care, medications, Prescriptions given X 2, 20:54 Patient left the ED. br2 Signatures: Won Enrique PA PA cp Jeffries, Jennifer jj6 Lindsey Tompkins RN RN cm10 Kristi Vargas RN RN br2
[2025-03-20 22:47] VITALS: O2SAT 99
[2025-03-20 22:49] VITALS: BP 110/70; TEMP 99
== END 2025-03-20 20:54 | disposition home or self-care (01) ==
LOC: ER 19:29
DX: K02.9 Dental caries, unspecified (principal); Z98.818 Other dental procedure status; F17.210 Nicotine dependence, cigarettes, uncomplicated
CPT/HCPCS: 99283